=== PATIENT | male | born 1965 | race Caucasian/White ===

== ENCOUNTER → 2016-10-29 | Outpatient (CLI) | payer BC | END | disposition home or self-care (01) | LOC: US 09:38 | PROVIDERS: ATTEND Internal Medicine | DX: N50.89 Other specified disorders of the male genital organs (principal); N50.3 Cyst of epididymis; I86.1 Scrotal varices; N28.1 Cyst of kidney, acquired; N43.3 Hydrocele, unspecified | CPT/HCPCS: 76770; 76870; 93976 ==